=== PATIENT | female | born 1960 | race Caucasian/White ===

== ENCOUNTER 2025-08-18 07:13 | Day surgery (SDC) | payer MEDICARE, OTHER ==
[2025-08-18] VITALS (9 sets, daily range): BP systolic 115–185; BP diastolic 64–86; PULSE 63–92
[~2025-08-18] VITALS: Ht 152.4 cm; Wt 67.7 kg
[~2025-08-18 07:13] MED LIST: ASPI-1444 PO; ASPIRIN 81 MG CHEWABLE TABLET ONE; ATOR40TA71 PO; EMPA25TA3 PO; LISI-1024 PO; METF-446 PO; METO25 PO; OMEP20CA12 PO; OS500 PO; SEMA1PEN3 IM; SODIUM CHLORIDE 0.9% 1,000 ML ONE
[2025-08-18 07:47] LABS: PLATELET COUNT (AUTO) 210 K/uL (150-450); RED BLOOD CELL COUNT(AUTO) 4.97 MIL/uL (4.00-5.20); RED CELL DISTRIBUTION WIDTH 13.2 % (11.5-14.5); WHITE BLOOD COUNT (AUTO) 5.9 K/uL (4.5-11.0)
[2025-08-18 07:57] LABS: CALCIUM, TOTAL 10.0 mg/dL (8.8-10.5); CREATININE 0.58 mg/dL (0.60-1.30); GLOMERULAR FILTR. RATE CALC > 60 mL/min (>60); GLUCOSE,RANDOM 147 mg/dL (70-110); SODIUM SERUM 142 mmol/L (136-145); UREA NITROGEN, BLOOD 15 mg/dL (7-18)
[2025-08-18 08:02] LABS: CHOL/HDL RATIO 5.6 (3.9-5.7); LDL CHOL (CALC.) 165.0 mg/dL (0-130)
[2025-08-18] MEDS: SODIUM CHLORIDE 0.9% 1,000 ML IV ONE (08:12)
[2025-08-18] MEDS: ASPIRIN 81 MG CHEWABLE TABLET PO ONE (08:28)
[2025-08-18] MEDS ORDERED: SODIUM BICARBONATE 50 MEQ/50 ML VIAL ONE (09:00)
[2025-08-18] MEDS ORDERED: HEPARIN SODIUM 1000 UNITS/NS 1,000 ML ONE (09:00)
[2025-08-18] MEDS ORDERED: LIDOCAINE/PF 1% 30 ML VIAL ONE (09:00)
[2025-08-18] MEDS ORDERED: IOHEXOL 300 MG/ML 100 ML VIAL ONE (09:00)
[2025-08-18] MEDS ORDERED: NITROGLYCERIN 50 MG/D5% WATER 250 ML ONE (09:52)
[2025-08-18] MEDS ORDERED: FentaNYL CITRATE PF 100 MCG/2 ML VIAL ONE (09:54)
[2025-08-18] MEDS ORDERED: MIDAZOLAM HCL 2 MG/2 ML VIAL ONE (09:55)
[2025-08-18] MEDS: IOHEXOL 300 MG/ML 100 ML VIAL ICOR ONE (10:49)
[2025-08-18] MEDS: LIDOCAINE 1% 30 ML/SOD BICARB 8.4% 4 ML SQ ONE (10:50)
[2025-08-18] MEDS: MIDAZOLAM HCL 2 MG/2 ML VIAL IVP ONE ×2 (10:50→10:54)
[2025-08-18] MEDS: FentaNYL CITRATE PF 100 MCG/2 ML VIAL IVP ONE ×3 (10:51→10:57)
[2025-08-18] MEDS: NITROGLYCERIN/D5W 50 MG/250 ML IV BOTTLE IARTER ONE (10:52)
[2025-08-18] MEDS: HEPARIN SODIUM 1000 UNITS/NS 1,000 ML IARTER ONE (10:53)
[2025-08-18] MEDS: NITROGLYCERIN/D5W 50 MG/250 ML IV BOTTLE ICOR ONE ×3 (10:55→10:59)
== END 2025-08-18 14:00 | disposition home or self-care (01) ==
LOC: CATHLAB 07:13
PROVIDERS: ATTEND Internal Medicine Interventional Cardiology
DX: I25.119 Atherosclerotic heart disease of native coronary artery with unspecified angina pectoris (principal); I45.10 Unspecified right bundle-branch block; I10 Essential (primary) hypertension; E11.9 Type 2 diabetes mellitus without complications; E78.5 Hyperlipidemia, unspecified; M81.0 Age-related osteoporosis without current pathological fracture; Z98.890 Other specified postprocedural states; Z98.891 History of uterine scar from previous surgery; Z79.82 Long term (current) use of aspirin; Z79.899 Other long term (current) drug therapy
CPT/HCPCS: 93458; 80061; 80048; 83036; 85025; 85610; 99152; 99153; 85730; 36415; 93005; J3010; J1644; J3490 ×3; J2250; J7030; Q9967